=== PATIENT | male | born 1980 | race Caucasian/White ===

== ENCOUNTER 2020-11-20 06:30 | Inpatient (IN) ==
[2020-11-20] MEDS ORDERED: haloperidoL 5 MG TABLET PO PRN (12:46)
[2020-11-20] MEDS ORDERED: hydrOXYzine pamoate 25 MG CAPSULE PO PRN (12:46)
[2020-11-20] MEDS ORDERED: *HR* LORazepam 1 MG TABLET PO PRN (12:46)
[2020-11-20] MEDS ORDERED: Acetaminophen 325 MG TABLET PO PRN (12:46)
[2020-11-20] MEDS ORDERED: Mag Hydrox/Al Hydrox/Simeth 30 ML UDC PO PRN (12:46)
[2020-11-20] MEDS ORDERED: MOM Conc 10 ML UD.LIQ PO PRN (12:46)
[2020-11-20] MEDS ORDERED: *HR* LORazepam 2 MG/ML VIAL IM PRN (12:46)
[2020-11-20] MEDS ORDERED: Haloperidol Lactate 5 MG/ML VIAL IM PRN (12:46)
[2020-11-20] MEDS ORDERED: QUEtiapine Fumarate 25 MG TABLET PO PRN (12:46)
[2020-11-20] MEDS ORDERED: Nicotine 21 MG PATCH.TD24 TD SCH (14:00)
[2020-11-20] MEDS: Nicotine 21 MG PATCH.TD24 TD SCH (14:45)
[2020-11-21] MEDS: Nicotine 21 MG PATCH.TD24 TD SCH ×2 (09:53→11:35)
[2020-11-21] MEDS: lamoTRIgine 25 MG TABLET PO SCH (11:28)
[2020-11-21] MEDS: *HR* Buprenorphine HCl 2 MG SUBLINGUAL TABLET SL SCH (11:28)
[2020-11-21] MEDS: cloNIDine HCL 0.1 MG TABLET PO SCH (11:28)
[2020-11-21] MEDS: risperiDONE 1 MG TABLET PO SCH (20:20)
[2020-11-21] MEDS ORDERED: *HR* Buprenorphine HCl 8 MG TAB.SUBL SL SCH (21:00)
[2020-11-22] MEDS: Nicotine 21 MG PATCH.TD24 TD SCH (09:52)
[2020-11-22] MEDS: cloNIDine HCL 0.1 MG TABLET PO SCH (09:54)
[2020-11-22] MEDS: lamoTRIgine 25 MG TABLET PO SCH (09:55)
[2020-11-22] MEDS: *HR* Buprenorphine HCl 8 MG TAB.SUBL SL SCH (09:55)
[2020-11-22] MEDS: *HR* Buprenorphine HCl 2 MG SUBLINGUAL TABLET SL SCH ×2 (10:01→20:47)
[2020-11-22] MEDS: risperiDONE 1 MG TABLET PO SCH (20:42)
[2020-11-23] MEDS: lamoTRIgine 25 MG TABLET PO SCH (10:04)
[2020-11-23] MEDS: Nicotine 21 MG PATCH.TD24 TD SCH (10:04)
[2020-11-23] MEDS: cloNIDine HCL 0.1 MG TABLET PO SCH (10:04)
[2020-11-23] MEDS: *HR* Buprenorphine HCl 8 MG TAB.SUBL SL SCH (10:05)
[2020-11-23] MEDS: BuPROPion XL (24 HR) 150 MG TABLET PO SCH (11:19)
[2020-11-23] MEDS: risperiDONE 1 MG TABLET PO SCH (20:55)
[2020-11-23] MEDS: *HR* Buprenorphine HCl 2 MG SUBLINGUAL TABLET SL SCH (20:55)
[2020-11-24] MEDS: cloNIDine HCL 0.1 MG TABLET PO SCH (08:48)
[2020-11-24] MEDS: lamoTRIgine 25 MG TABLET PO SCH (08:49)
[2020-11-24] MEDS: BuPROPion XL (24 HR) 150 MG TABLET PO SCH (08:49)
[2020-11-24] MEDS: *HR* Buprenorphine HCl 8 MG TAB.SUBL SL SCH (08:50)
[2020-11-24] MEDS: Nicotine 21 MG PATCH.TD24 TD SCH (08:50)
[2020-11-24 09:44] VITALS: BP 117/82
== END 2020-11-24 17:30 | disposition home or self-care (01) | DRG 750 ==
LOC: EMEROOARM 06:30 → 1ANU 10:48
PROVIDERS: ADMIT Psychiatry & Neurology Psychiatry; ATTEND Psychiatry & Neurology Psychiatry

== ENCOUNTER 2021-02-12 20:07 | Inpatient (IN) ==
[2021-02-12 20:55] LABS: Basophils % 0.2 %; Eosinophils % 0.4 %; Hematocrit 47.6 % (37.5-50.1); Hemoglobin 16.5 g/dL (12.9-16.9); Immature Granulocytes % 0.4 % (0-4); Lymphocytes # 1.5 K/mcL (0.6-4.6); Lymphocytes % 18.4 %; Mean Corpuscular HGB Conc 34.7 g/dL (31.6-35.5); Mean Corpuscular Hemoglobin 30.6 pg (28.0-33.3); Mean Corpuscular Volume 88.1 fL (83.0-100.0); Mean Platelet Volume 11.6 fL (9.4-12.4); Monocytes # 0.3 K/mcL (0.0-1.3); Monocytes % 3.8 %; Neutrophils # 6.2 K/mcL (1.6-8.9); Platelet Count 155 K/mcL (140-400); Red Cell Distribution Width 12.5 % (11.5-14.5); Segmented Neutrophils % 76.8 %; White Blood Count 8.1 K/mcL (4.3-11.1)
[2021-02-12 21:27] LABS: Alanine Aminotransferase 81 Units/L (7-52); Albumin 4.8 g/dL (3.5-5.7); Albumin/Globulin Ratio 1.6 (1.1-2.2); Alkaline Phosphatase 96 Units/L (34-104); Aspartate Amino Transferase 208 Units/L (13-39); BUN/Creatinine Ratio 16 (6-26); Bilirubin,Direct 0.3 mg/dL (0.0-0.2); Bilirubin,Indirect 1.3 mg/dL (0.0-1.0); Bilirubin,Total 1.6 mg/dL (0.3-1.0); Blood Urea Nitrogen 16 mg/dL (6-20); Calcium 9.7 mg/dL (8.6-10.3); Carbon Dioxide 29 mEq/L (23-29); Chloride 99 mEq/L (98-107); Creatine Kinase 11209 Units/L (30-223); Ethanol < 10 mg/dL (Less than 10); Glucose 97 mg/dL (70-105); Osmolality,Calculated 287 (280-300); Potassium 3.6 mEq/L (3.5-5.1); Sodium 138 mEq/L (136-145); Total Protein 7.8 g/dL (6.4-8.9); Troponin I 0.03 ng/mL (< 0.04); eGFR For African Americans > 60 (> 60); eGFR For Non-African Americans > 60 (> 60)
[2021-02-12 21:39] LABS: Bacteria,Urine Few per hpf (None-Few); Bilirubin,Urine Negative (Negative); Blood,Urine Negative (Negative); Clarity,Urine Clear (Clear); Color,Urine Yellow (Yellow); Glucose,Urine (UA) Normal (Normal); Ketones,Urine 40 mg/dL (Negative); Leukocyte Esterase,Urine Negative (Negative); Mucus,Urine Few per lpf (None-Few); Nitrite,Urine Negative (Negative); Protein,Urine 30 mg/dL (Neg-Trace); RBC,Urine 0-3 per hpf (0-3); Specific Gravity,Urine > 1.030 (1.010-1.025); Squamous Epithelial Cell,Urine Few per hpf (None-Few); WBC,Urine 0-3 per hpf (0-3)
[2021-02-12 21:44] LABS: Amphetamine Screen,Urine Positive ng/mL (Cutoff=1000); Barbiturate Screen,Urine Negative ng/mL (Cutoff=200); Benzodiazepines Screen,Urine Negative ng/mL (Cutoff=200); Cannabinoid Screen,Urine Negative ng/mL (Cutoff = 50); Cocaine Screen,Urine Negative ng/mL (Cutoff= 300); Opiate Screen,Urine Negative ng/mL (Cutoff=300); Phencyclidine Screen,Urine Negative ng/mL (Cutoff=25)
[2021-02-12] MEDS ORDERED: 0.9 % Sodium Chloride 1,000 ML IVC ONE ×2 (22:06)
[2021-02-12] MEDS ORDERED: *HR* Promethazine 25 MG/ML VIAL IM PRN (23:38)
[2021-02-12] MEDS ORDERED: Naloxone 0.4 MG/ML INJ IVP PRN (23:38)
[2021-02-12] MEDS ORDERED: Melatonin 3 MG TABLET PO PRN (23:38)
[2021-02-12] MEDS ORDERED: Ondansetron 4 MG/2 ML VIAL IVP PRN (23:38)
[2021-02-13] MEDS: 0.9 % Sodium Chloride 1,000 ML IVC SCH ×5 (01:21→21:25)
[2021-02-13 02:01] LABS: Influenza A PCR Negative (Negative); Influenza B PCR Negative (Negative); Resp. Syncytial Virus PCR Negative (Negative)
[2021-02-13 02:02] LABS: SARS-CoV-2 by PCR (In House) Negative (Negative)
[2021-02-13 02:52] LABS: Basophils % 0.4 %; Eosinophils % 1.2 %
[2021-02-13 02:54] LABS: Eosinophils # 0.1 K/mcL (0.0-0.6); Hematocrit 43.4 % (37.5-50.1); Hemoglobin 14.8 g/dL (12.9-16.9); Immature Granulocytes % 0.3 % (0-4); Immature Platelets 6.4 % (1.1-6.1); Lymphocytes % 29.6 %; Mean Corpuscular HGB Conc 34.1 g/dL (31.6-35.5); Mean Corpuscular Hemoglobin 30.7 pg (28.0-33.3); Mean Platelet Volume 11.7 fL (9.4-12.4); Monocytes # 0.4 K/mcL (0.0-1.3); Monocytes % 6.2 %; Neutrophils # 4.2 K/mcL (1.6-8.9); Platelet Count 140 K/mcL (140-400); Red Blood Count 4.82 M/mcL (4.19-5.50); Red Cell Distribution Width 12.4 % (11.5-14.5); Segmented Neutrophils % 62.3 %; White Blood Count 6.8 K/mcL (4.3-11.1)
[2021-02-13] MEDS ORDERED: Nicotine 21 MG PATCH.TD24 TD SCH (03:15)
[2021-02-13 03:18] LABS: BUN/Creatinine Ratio 17 (6-26); Blood Urea Nitrogen 15 mg/dL (6-20); Calcium 8.2 mg/dL (8.6-10.3); Carbon Dioxide 25 mEq/L (23-29); Chloride 105 mEq/L (98-107); Creatine Kinase 9064 Units/L (30-223); Glucose 77 mg/dL (70-105); Osmolality,Calculated 286 (280-300); Potassium 3.7 mEq/L (3.5-5.1); Sodium 138 mEq/L (136-145); eGFR For African Americans > 60 (> 60); eGFR For Non-African Americans > 60 (> 60)
[2021-02-13 03:36] LABS: Hepatitis B Surface Antigen Nonreactive (Nonreactive)
[2021-02-13 04:06] LABS: Hepatitis B Core IgM Nonreactive (Nonreactive)
[2021-02-13 04:07] LABS: Hepatitis A Antibody IgM Nonreactive (Nonreactive)
[2021-02-13 09:37] LABS: Hepatitis C Virus Antibody Reactive (Nonreactive)
[2021-02-13] MEDS: *HR* Buprenorphine HCl 8 MG TAB.SUBL SL SCH ×2 (09:48→21:25)
[2021-02-13] MEDS: Acetaminophen 325 MG TABLET PO PRN (16:36)
[2021-02-13] MEDS: Nicotine 21 MG PATCH.TD24 TD SCH (22:10)
[2021-02-14] MEDS ORDERED: Nitroglycerin 0.4 MG TAB.SUBL SL PRN (02:41)
[2021-02-14 03:15] LABS: Hematocrit 42.2 % (37.5-50.1); Mean Corpuscular HGB Conc 35.5 g/dL (31.6-35.5); Mean Corpuscular Hemoglobin 30.9 pg (28.0-33.3); Mean Platelet Volume 11.6 fL (9.4-12.4); Platelet Count 145 K/mcL (140-400); Red Blood Count 4.85 M/mcL (4.19-5.50); Red Cell Distribution Width 12.1 % (11.5-14.5); White Blood Count 6.9 K/mcL (4.3-11.1)
[2021-02-14] MEDS: 0.9 % Sodium Chloride 1,000 ML IVC SCH ×2 (05:33→17:52)
[2021-02-14] MEDS ORDERED: *HR* Enoxaparin 40 MG/0.4 ML SYRINGE SQ SCH (06:00)
[2021-02-14 07:43] LABS: Alanine Aminotransferase 69 Units/L (7-52); Albumin/Globulin Ratio 1.7 (1.1-2.2); Alkaline Phosphatase 72 Units/L (34-104); Aspartate Amino Transferase 116 Units/L (13-39); BUN/Creatinine Ratio 16 (6-26); Bilirubin,Total 1.3 mg/dL (0.3-1.0); Blood Urea Nitrogen 13 mg/dL (6-20); Calcium 8.7 mg/dL (8.6-10.3); Carbon Dioxide 25 mEq/L (23-29); Chloride 104 mEq/L (98-107); Creatine Kinase 2532 Units/L (30-223); Globulin 2.3 g/dL (2.4-3.5); Glucose 89 mg/dL (70-105); Osmolality,Calculated 286 (280-300); Potassium 3.6 mEq/L (3.5-5.1); Sodium 138 mEq/L (136-145); Total Protein 6.3 g/dL (6.4-8.9); eGFR For African Americans > 60 (> 60); eGFR For Non-African Americans > 60 (> 60)
[2021-02-14] MEDS: *HR* Buprenorphine HCl 8 MG TAB.SUBL SL SCH (09:11)
[2021-02-14] MEDS: *HR* Enoxaparin 40 MG/0.4 ML SYRINGE SQ SCH (09:11)
[2021-02-14] MEDS ORDERED: *HR* Buprenorphine HCl 8 MG TAB.SUBL SL ONE (11:15)
[2021-02-14 14:22] LABS: Bilirubin,Direct 0.2 mg/dL (0.0-0.2); Bilirubin,Indirect 1.1 mg/dL (0.0-1.0)
[2021-02-14] MEDS: *HR* Buprenorphine HCl 2 MG SUBLINGUAL TABLET SL SCH (17:52)
[2021-02-14] MEDS: Acetaminophen 325 MG TABLET PO PRN (18:00)
[2021-02-14] MEDS: ARIPiprazole 5 MG TABLET PO SCH (20:39)
[2021-02-14] MEDS: Nicotine 21 MG PATCH.TD24 TD SCH (20:39)
[2021-02-15] MEDS: 0.9 % Sodium Chloride 1,000 ML IVC SCH ×3 (01:56→17:27)
[2021-02-15 05:20] LABS: Hematocrit 37.9 % (37.5-50.1); Hemoglobin 13.3 g/dL (12.9-16.9); Mean Corpuscular HGB Conc 35.1 g/dL (31.6-35.5); Mean Corpuscular Hemoglobin 31.1 pg (28.0-33.3); Mean Corpuscular Volume 88.6 fL (83.0-100.0); Platelet Count 131 K/mcL (140-400); Red Blood Count 4.28 M/mcL (4.19-5.50); Red Cell Distribution Width 12.1 % (11.5-14.5); White Blood Count 5.7 K/mcL (4.3-11.1)
[2021-02-15 05:38] LABS: Alanine Aminotransferase 56 Units/L (7-52); Albumin 3.5 g/dL (3.5-5.7); Albumin/Globulin Ratio 1.8 (1.1-2.2); Alkaline Phosphatase 65 Units/L (34-104); Aspartate Amino Transferase 60 Units/L (13-39); BUN/Creatinine Ratio 15 (6-26); Bilirubin,Total 0.6 mg/dL (0.3-1.0); Blood Urea Nitrogen 12 mg/dL (6-20); Calcium 8.7 mg/dL (8.6-10.3); Carbon Dioxide 26 mEq/L (23-29); Chloride 107 mEq/L (98-107); Creatine Kinase 577 Units/L (30-223); Glucose 116 mg/dL (70-105); Osmolality,Calculated 289 (280-300); Potassium 3.5 mEq/L (3.5-5.1); Sodium 139 mEq/L (136-145); Total Protein 5.5 g/dL (6.4-8.9); eGFR For African Americans > 60 (> 60); eGFR For Non-African Americans > 60 (> 60)
[2021-02-15] MEDS: *HR* Buprenorphine HCl 8 MG TAB.SUBL SL SCH (09:16)
[2021-02-15] MEDS: *HR* Enoxaparin 40 MG/0.4 ML SYRINGE SQ SCH (09:16)
[2021-02-15] MEDS: *HR* Buprenorphine HCl 2 MG SUBLINGUAL TABLET SL SCH (17:26)
[2021-02-15] MEDS: ARIPiprazole 5 MG TABLET PO SCH (21:08)
[2021-02-15] MEDS: Nicotine 21 MG PATCH.TD24 TD SCH (21:08)
[2021-02-16 03:55] VITALS: TEMP 98.4
[2021-02-16 05:52] LABS: Hemoglobin 13.8 g/dL (12.9-16.9)
[2021-02-16 05:54] LABS: Hematocrit 39.4 % (37.5-50.1); Immature Platelets 7.9 % (1.1-6.1); Mean Corpuscular Hemoglobin 30.7 pg (28.0-33.3); Mean Corpuscular Volume 87.8 fL (83.0-100.0); Mean Platelet Volume 11.6 fL (9.4-12.4); Red Blood Count 4.49 M/mcL (4.19-5.50); Red Cell Distribution Width 11.9 % (11.5-14.5); White Blood Count 5.9 K/mcL (4.3-11.1)
[2021-02-16 06:13] LABS: Alanine Aminotransferase 52 Units/L (7-52); Albumin 3.7 g/dL (3.5-5.7); Albumin/Globulin Ratio 1.7 (1.1-2.2); Alkaline Phosphatase 64 Units/L (34-104); Aspartate Amino Transferase 43 Units/L (13-39); BUN/Creatinine Ratio 12 (6-26); Bilirubin,Total 0.7 mg/dL (0.3-1.0); Blood Urea Nitrogen 9 mg/dL (6-20); Calcium 8.9 mg/dL (8.6-10.3); Carbon Dioxide 28 mEq/L (23-29); Chloride 105 mEq/L (98-107); Creatine Kinase 179 Units/L (30-223); Globulin 2.2 g/dL (2.4-3.5); Glucose 92 mg/dL (70-105); Osmolality,Calculated 286 (280-300); Potassium 3.6 mEq/L (3.5-5.1); Sodium 139 mEq/L (136-145); Total Protein 5.9 g/dL (6.4-8.9); eGFR For African Americans > 60 (> 60); eGFR For Non-African Americans > 60 (> 60)
[2021-02-16] MEDS: 0.9 % Sodium Chloride 1,000 ML IVC SCH (06:54)
[2021-02-16 07:28] VITALS: BP 123/82; PULSE 85; O2SAT 96
[2021-02-16] MEDS: *HR* Enoxaparin 40 MG/0.4 ML SYRINGE SQ SCH (08:24)
[2021-02-16] MEDS: *HR* Buprenorphine HCl 8 MG TAB.SUBL SL SCH (08:24)
[2021-02-16] MEDS: *HR* Buprenorphine HCl 2 MG SUBLINGUAL TABLET SL SCH (17:31)
== END 2021-02-16 18:55 | DRG 351 ==
LOC: EMEROOARM 20:07 → 3BNU 20:07 → SUATTDRO 23:50 → 3BNU 02-13 00:43
PROVIDERS: ADMIT Internal Medicine; ATTEND Registered Nurse

== ENCOUNTER 2021-02-16 18:56 | Observation (INO) ==
[2021-02-16] MEDS ORDERED: Acetaminophen 325 MG TABLET PO PRN (19:05)
[2021-02-16] MEDS ORDERED: hydrOXYzine pamoate 25 MG CAPSULE PO PRN (19:05)
[2021-02-16] MEDS ORDERED: Mag Hydrox/Al Hydrox/Simeth 30 ML UDC PO PRN (19:05)
[2021-02-16] MEDS ORDERED: Haloperidol Lactate 5 MG/ML VIAL IM PRN (19:05)
[2021-02-16] MEDS ORDERED: *HR* LORazepam 1 MG TABLET PO PRN (19:05)
[2021-02-16] MEDS ORDERED: *HR* LORazepam 2 MG/ML VIAL IM PRN (19:05)
[2021-02-16] MEDS ORDERED: haloperidoL 5 MG TABLET PO PRN (19:05)
[2021-02-16] MEDS ORDERED: MOM Conc 10 ML UD.LIQ PO PRN (19:05)
[2021-02-16] MEDS ORDERED: traZODone 50 MG TABLET PO PRN (19:05)
[2021-02-16] MEDS ORDERED: Ibuprofen 400 MG TABLET PO PRN (19:05)
[2021-02-17] MEDS ORDERED: Nicotine 21 MG PATCH.TD24 TD SCH (09:00)
[2021-02-17] MEDS ORDERED: *HR* Buprenorphine HCl 8 MG TAB.SUBL SL SCH (09:00)
[2021-02-17] MEDS ORDERED: ARIPiprazole 5 MG TABLET PO SCH (09:15)
[2021-02-17 09:28] VITALS: BP 93/60; PULSE 87; TEMP 98.2; O2SAT 95
== END 2021-02-17 16:30 | disposition home or self-care (01) ==
LOC: 1ANU 18:56 → INTOOBSV 18:56
PROVIDERS: ADMIT Psychiatry & Neurology Psychiatry; ATTEND Psychiatry & Neurology Psychiatry